=== PATIENT | female | born 1955 | race Caucasian/White ===

== ENCOUNTER → 2024-02-21 | Outpatient (CLI) | payer OTHER ==
[2024-02-21 16:53] LABS: Free Thyroxine 0.78 ng/dL (0.70-1.60)
[2024-02-21 16:55] LABS: Thyroid Stimulating Hormone 11.5 uIU/mL (0.360-4.800)
== END ==
LOC: LAB 09:40 → LAB SHORT 09:40
PROVIDERS: Nurse Practitioner Family
DX: E03.9 Hypothyroidism, unspecified (principal)
CPT/HCPCS: 84439; 84443